=== PATIENT | female | born 1995 | race Caucasian/White ===

== ENCOUNTER 2019-10-23 15:48 | Outpatient (CLI) | payer OTHER ==
[~2019-10-23] VITALS: Ht 154.9 cm; Wt 65.0 kg
[~2019-10-23 15:48] MED LIST: MOTRIN 800800 MG/TAB PO; PERCOCET 325 MG1 TA2 PO
--- NOTE | 2019-10-23 15:50 | NUR ---
Patient ambulatory to unit. Patient states she has not felt baby move even after drinking a coffee. Patient denies any leaking of fluid or vaginal bleeding. FHR and contraction monitors placed and tracing FHR well. Assessment completed. Patient states as she is lying in bed felt baby move. Call for orders
[2019-10-23 16:08] VITALS: BP 100/55; PULSE 79; TEMP 99
[2019-10-23] MEDS ORDERED: PRENATAL TABLET PO (16:13)
--- NOTE | 2019-10-23 16:51 | NUR ---
Patient states she is feeling movement.
[2019-10-23 17:00] VITALS: BP 102/57; PULSE 75
--- NOTE | 2019-10-23 17:00 | NUR ---
FHR off monitor. Patient sitting up for lab draw. When patient resting back in bed FHR tracing well.
[2019-10-23 17:16] LABS: BASO % 0.1 % (0.0-2.0); EOS # 0.1 (0.0-0.7); EOS % 0.7 % (0-4.0); GRAN # 6.7 (1.4-6.5); GRAN % 72.9 % (42.2-75.2); LYMPH # 1.8 (1.2-3.4); LYMPH % 19.9 % (20.0-51.0); MEAN CELL VOLUME 89 fl (80.0-100.0); MEAN CORPUSCULAR HGB CONC 34 g/dl (33.0-37.0); MEAN PLATELET VOLUME 11.1 fl (7.4-10.4); MONO # 0.6 (0.1-0.6); MONO % 6.1 % (1.7-9.3); PLATELET COUNT 180 K/mm3 (130-400); RED BLOOD COUNT 3.06 M/mm3 (4.10-5.30); REDCELL DISTRIBUTION WIDTH-CV 12.7 % (11.5-14.5)
[2019-10-23 17:18] LABS: HEMATOCRIT 27.3 % (37.0-47.0); HEMOGLOBIN 9.3 g/dl (12.5-16.0); MEAN CORPUSCULAR HEMOGLOBIN 30 pg (27.0-31.0)
[2019-10-23 17:31] LABS: ALBUMIN 3.7 gm/dL (3.5-5.0); BILIRUBIN,TOTAL 0.3 mg/dL (0.0-1.0); CALCIUM 9.3 mg/dL (8.4-10.2); CREATININE, serum 0.53 (0.52-1.25); TOTAL PROTEIN 6.9 gm/dL (6.4-8.2)
== END 2019-10-23 18:00 | disposition home or self-care (01) ==
LOC: LDRO 15:48 → LDR 16:44 → LDRO 18:00
PROVIDERS: Obstetrics & Gynecology
DX: O36.8130 Decreased fetal movements, third trimester, not applicable or unspecified (principal); Z3A.37 37 weeks gestation of pregnancy
CPT/HCPCS: OP

== ENCOUNTER → 2019-11-06 | Outpatient (CLI) | payer OTHER ==
[~2019-11-06] MED LIST changes: +IBU600 MG PO; +PRENATAL TABLET PO; +ZOLOFT 50MG50 MG PO
== END ==
LOC: ZCOL.LAB 09:45
DX: Z20.828 Contact with and (suspected) exposure to other viral communicable diseases (principal)

== ENCOUNTER 2019-11-08 08:23 | Inpatient (IN) | payer OTHER ==
[2019-11-08] VITALS (17 sets, daily range): BP systolic 104–131; BP diastolic 60–763; PULSE 58–118; TEMP 97–99.1
[~2019-11-08] VITALS: Ht 154.9 cm; Wt 65.9 kg
[~2019-11-08 08:23] MED LIST changes: -IBU600 MG PO; -ZOLOFT 50MG50 MG PO
--- NOTE | 2019-11-08 08:30 | NUR ---
Presents to labor and delivery. Vag exam done, dilated eight, 100 percent effaced, zero station. Iv start to left hand, lactated ringers started. Anesthesia called for request of epidural. Dr. Johnson called and let know that patient here and dilation.
--- NOTE | 2019-11-08 08:45 | NUR ---
0853 Anethesia here, visits with patient. 0817 Staight shot given by Alan Damon c.r.n.a. Lies down after.
--- NOTE | 2019-11-08 09:00 | NUR ---
Dr. Johnson here. Vag exam done, arom done, moderate amount of clear fluid noted. Pad changed.
[2019-11-08 09:01] LABS: BASO % 0.2 % (0.0-2.0); EOS # 0.1 (0.0-0.7); EOS % 0.6 % (0-4.0); GRAN # 8.7 (1.4-6.5); GRAN % 70.2 % (42.2-75.2); HEMOGLOBIN 10.3 g/dl (12.5-16.0); LYMPH # 2.7 (1.2-3.4); MEAN CELL VOLUME 88 fl (80.0-100.0); MEAN CORPUSCULAR HEMOGLOBIN 30 pg (27.0-31.0); MEAN CORPUSCULAR HGB CONC 34 g/dl (33.0-37.0); MEAN PLATELET VOLUME 11.7 fl (7.4-10.4); MONO # 0.8 (0.1-0.6); MONO % 6.6 % (1.7-9.3); PLATELET COUNT 178 K/mm3 (130-400); RED BLOOD COUNT 3.44 M/mm3 (4.10-5.30)
[2019-11-08 09:04] LABS: HEMATOCRIT 30.4 % (37.0-47.0)
--- NOTE | 2019-11-08 09:45 | NUR ---
Let Dr. Johnson know that patient complete. 0952 Anesthesia here, medication given per request. 0956 Spontaneous delivery of baby boy by Dr. Johnson. 1001 Spontaneous delivery of placenta by Dr. Johnson. Pitocin infusing at 333ccs an hour as ordered and per policy.
--- NOTE | 2019-11-08 10:15 | NUR ---
Rests in bed, alert. Holds baby lovingly skin to skin. Denies any needs at this time.
--- NOTE | 2019-11-08 11:30 | NUR ---
Rests in bed, alert. Denies any needs at this time.
--- NOTE | 2019-11-08 12:00 | NUR ---
Rests in bed, alert, eating noon meal. Denies any needs at this time.
--- NOTE | 2019-11-08 13:00 | NUR ---
Ambulates to bathroom, voids moderate amount of urine. Naya-care shown and given. To room 218 via wheel chair. Oriented to room.
--- NOTE | 2019-11-08 16:00 | NUR ---
Rests in bed, alert. Denies any discomfort or pain at this time. Holds baby lovingly.
[2019-11-09 07:28] LABS: HEMATOCRIT 29.2 % (37.0-47.0); HEMOGLOBIN 9.9 g/dl (12.5-16.0)
[2019-11-09 08:00] VITALS: BP 101/56; PULSE 66; TEMP 98
--- NOTE | 2019-11-09 08:00 | NUR ---
Rests in bed, alert. States has not slept much tonight. Says has anxiety. Let her know that she needs to talk with her DrPoly when he comes in. She states that she will.
[2019-11-09] MEDS ORDERED: IBU600 MG PO (08:59)
[2019-11-09] MEDS ORDERED: ZOLOFT 50MG50 MG PO (09:00)
--- NOTE | 2019-11-09 10:36 | NUR ---
Initial visit; Patient thanked Babbitt Spinner for offering congratulations for the of her son. Babbitt Spinner thanked mom for choosing [facility].
--- NOTE | 2019-11-09 12:00 | NUR ---
Rests in bed, alert, denies any needs at this time.
--- NOTE | 2019-11-09 13:00 | NUR ---
Rests in bed, breastfeeds baby. Discharge instructions given, verbalizes understanding.
== END 2019-11-09 13:30 | disposition home or self-care (01) | DRG 807 ==
LOC: LDRO 08:23 → LDR 08:56 → OB 08:56
PROVIDERS: ADMIT Obstetrics & Gynecology
PROC: 10E0XZZ Delivery of Products of Conception, External Approach (ICD-10-PCS; principal; 2019-11-08)
DX: O99.02 Anemia complicating childbirth (principal); Z37.0 Single live birth; D64.9 Anemia, unspecified; O99.62 Diseases of the digestive system complicating childbirth; K42.9 Umbilical hernia without obstruction or gangrene; O69.81X0 Labor and delivery complicated by cord around neck, without compression, not applicable or unspecified; O99.343 Other mental disorders complicating pregnancy, third trimester; F41.9 Anxiety disorder, unspecified; Z3A.39 39 weeks gestation of pregnancy
CPT/HCPCS: J2400; J2590; J7120

== ENCOUNTER 2021-05-17 07:45 | Inpatient (IN) | payer OTHER ==
[2021-05-17] VITALS (20 sets, daily range): BP systolic 91–141; BP diastolic 58–86; PULSE 67–123; TEMP 98.1–98.6
[~2021-05-17] VITALS: Ht 157.5 cm; Wt 70.5 kg
[~2021-05-17 07:45] MED LIST changes: +IBU600 MG PO; +ZOLOFT 50MG50 MG PO
--- NOTE | 2021-05-17 08:00 | NUR ---
0750- Pt arrives on unit ambulatory, complains of UCs since 0530 this morning. Pt into bathroom to void and change into gown. 0754- Pt into bed, EFM and TOCO on and tracing well. VSS, Maternal HR elevated, O2 sat monitor on and tracing. Pt appears anxious and verbalizes being nervous. Assessment completed. Pt denies LOF. Has had blood-tinged mucous. +FM per Pt and heard by this RN on monitor. Pt states UCs every 2 mins at home. POC explained and Pt denies questions. Call light within reach.
--- NOTE | 2021-05-17 08:37 | NUR ---
0837- EFM and TOCO off, Pt up to birthing ball per request.
--- NOTE | 2021-05-17 09:06 | NUR ---
0906- Pt in bed, EFM and TOCO on and tracing. SVE by this RN. Pt states contractions are stonger, tolerating well.
--- NOTE | 2021-05-17 10:19 | NUR ---
1012- Pt up to void. 1015- Pt wants to sit on BB. FHR not tracing well, adjusted. 1018- FHR 135 bpm, EFM and TOCO off for intermittent monitoring, Pt remains on BB.
--- NOTE | 2021-05-17 10:20 | NUR ---
This RN assumes care of patient and bedside report received from Adam. Patient on birthing ball and has no needs at this time. Plan of care discussed. 1112: Patient back on monitors and on birthing. Difficulty tracing FHR, this RN adjusting monitor. 1127: Dr. Torres at bedside and assessing patient and FHR strip. Plan of care discussed. 1129: SVE per physician /-2 and AROM at this time with clear fluid noted. 1135: Patient requesting epidural and C. Michael PEDIATRIC OCCUPATIONAL THERAPIST called and notified.
[2021-05-17 10:31] LABS: BASO % 0.3 % (0.0-2.0); EOS # 0.1 K/mm3 (0.0-0.7); EOS % 0.6 % (0.0-4.0); GRAN # 8.6 K/mm3 (1.4-6.5); GRAN % 71.6 % (42.2-75.2); HEMOGLOBIN 10.1 g/dl (12.5-16.0); LYMPH # 2.3 K/mm3 (1.2-3.4); LYMPH % 19.5 % (20.0-51.0); MEAN CELL VOLUME 87 fl (80.0-100.0); MEAN CORPUSCULAR HEMOGLOBIN 29 pg (27-31); MEAN CORPUSCULAR HGB CONC 34 g/dl (33.0-37.0); MEAN PLATELET VOLUME 11.1 fl (7.4-10.4); MONO # 0.9 K/mm3 (0.1-0.6); MONO % 7.4 % (1.7-9.3); PLATELET COUNT 233 K/mm3 (130-400); RED BLOOD COUNT 3.47 M/mm3 (4.10-5.30); REDCELL DISTRIBUTION WIDTH-CV 13.3 % (11.5-14.5)
[2021-05-17 10:33] LABS: HEMATOCRIT 30.1 % (37.0-47.0)
--- NOTE | 2021-05-17 11:52 | NUR ---
Patient sitting up for epidural and C.Michael SPEECH AND HEARING DIRECTOR at bedside. Difficulty tracing FHR due to maternal position. 1159: Single shot given and patient tolerates well. 1205: Patient repositioned and plan of care/safety precautions discussed. 1215: FHR monitors tracing maternal HR due to sitting forward. Monitor adjusted. 1235: SVE-8/90/-1 and FHR monitor adjusted. Patient resting right lateral. Dr. Torres at nurses station reviewing FHR strip and updated. 1300: Patient states feeling more pressure. SVE 9-10/100/0 Dr. Torres continues to review FHR at nurses station. 1330: SVE- 10/100/+[address] Torres updated. Patient set for vaginal delivery.
--- NOTE | 2021-05-17 13:40 | NUR ---
at bedside. 1341: Patient pushes with contraction and spontaneous vaginal delivery of viable male-head followed by body. Infant to patients abdomen and D.Kit RN/Nasir MENDOZA assumes care of infant. Cord blood clamped x2 by physician and cut by FOB. Cord blood obtained. Physician straight catherizes patient. 250ML obtained. 1345: Spontaneous delivery of placenta and pitocin bolus started per protocol. Fundal massage done/firm/bleeding WNL. Perineum intact/pericare done. Patient repositioned and ice pack to perineum. Plan of care discussed.
[2021-05-18 01:15] VITALS: BP 115/72; PULSE 70; TEMP 97.7
[2021-05-18 08:15] VITALS: BP 103/63; PULSE 70; TEMP 97.9
--- NOTE | 2021-05-18 15:30 | NUR ---
Discharge instructions reviewed with pt regarding follow-up appointment, medications, activity restrictions, and care of baby. Pt verbalizes understanding, awaiting arrival of spouse for discharge.
--- NOTE | 2021-05-18 15:43 | NUR ---
Pt discharged home, ambulates out of facility accompanied by this nurse and pt's dad with baby.
== END 2021-05-18 15:40 | disposition home or self-care (01) | DRG 807 ==
LOC: LDR 07:45 → OB 07:45 → LDR 07:50 → OB 16:38
PROVIDERS: Student in an Organized Health Care Education/Training Program; ADMIT Obstetrics & Gynecology
PROC: 10E0XZZ Delivery of Products of Conception, External Approach (ICD-10-PCS; principal; 2021-05-17)
DX: O99.62 Diseases of the digestive system complicating childbirth (principal); Z37.0 Single live birth; Z3A.38 38 weeks gestation of pregnancy; K21.9 Gastro-esophageal reflux disease without esophagitis; K42.9 Umbilical hernia without obstruction or gangrene; O99.344 Other mental disorders complicating childbirth; F32.A Depression, unspecified; F41.9 Anxiety disorder, unspecified; O69.1XX0 Labor and delivery complicated by cord around neck, with compression, not applicable or unspecified; Z86.16 Personal history of COVID-19
CPT/HCPCS: J2590; J7120